=== PATIENT | male | born 1965 | race American Indian/Alaskan Native ===

== ENCOUNTER 2017-12-21 21:22 | Inpatient (IN) | payer MEDICAID ==
[~2017-12-21] VITALS: Ht 182.9 cm; Wt 136.7 kg
[~2017-12-21 21:22] MED LIST: AMIO200T27 PO; APIX5TAB3 PO; CARV25TA3 PO; CLIN-80 PO; CLIN50GE6 TP; FURO-149 PO; FURO40TA4 PO; INSU200I SQ; LANTUS SUBCUT; LISI-604 PO; POTA10TA19 PO
[2017-12-21 23:04] LABS: BASOPHILS % (AUTO) 0.5 % (0-1); EOSINOPHILS # (AUTO) 0.1 X10'3 (0-0.9); EOSINOPHILS % (AUTO) 2.2 % (0-6); HEMATOCRIT 39.1 % (42.0-52.0); HEMOGLOBIN 13.3 g/dl (14.0-17.9); LYMPHOCYTES # (AUTO) 1.1 X10'3 (1.1-4.8); LYMPHOCYTES % (AUTO) 22.1 % (21-51); MEAN CORPUSCULAR HEMOGLOBIN 29.6 PG (27.0-31.0); MEAN CORPUSCULAR VOLUME 87.2 FL (78-98); MEAN PLATELET VOLUME 8.2 FL (7.4-10.4); MONOCYTES # (AUTO) 0.4 X10'3 (0-0.9); MONOCYTES % (AUTO) 8.3 % (2-12); NEUTROPHILS # (AUTO) 3.4 X10'3 (1.8-7.7); NEUTROPHILS % (AUTO) 66.9 % (42-75); PLATELET COUNT 188 X10'3 (140-440); RED BLOOD COUNT 4.48 X10'6 (4.70-6.10); RED CELL DISTRIBUTION WIDTH 14.8 % (11.5-14.5); WHITE BLOOD COUNT 5.1 X10'3 (4.5-11.0)
[2017-12-21 23:07] LABS: INR 1.1 INR; PARTIAL THROMBOPLASTIN TIME 26 SECONDS (22-32); PROTHROMBIN TIME 10.9 SECONDS (9.0-12.0)
[2017-12-21 23:17] LABS: ALANINE AMINOTRANSFERASE 60 U/L (12-78); ALBUMIN 2.9 G/DL (3.4-5.0); ALBUMIN/GLOBULIN RATIO 0.8 (1.1-1.5); ALKALINE PHOSPHATASE 98 IU/L (46-116); ANION GAP 6 (8-16); ASPARTATE AMINO TRANSFERASE 23 U/L (10-37); BILIRUBIN,TOTAL 0.6 MG/DL (0.1-1.0); BLOOD UREA NITROGEN 29 MG/DL (7-18); BUN/CREATININE RATIO 20.7 (5.4-32.0); CALCIUM 8.2 MG/DL (8.5-10.1); CHLORIDE 105 MMOL/L (99-107); GLUCOSE 302 MG/DL (70-104); MAGNESIUM 1.5 MG/DL (1.5-2.4); POTASSIUM 3.7 MMOL/L (3.5-5.1); SODIUM 140 MMOL/L (135-145); TOTAL CARBON DIOXIDE 29.1 MMOL/L (24-32); TOTAL PROTEIN 6.4 G/DL (6.4-8.2); eGFR 53 ML/MIN
[2017-12-21] MEDS ORDERED: metoprolol tartrate 50mg tablet PO ONE (23:45)
[2017-12-21] MEDS ORDERED: diltiazem 5mg/ml 5ml inj. IV ONE (23:45)
[2017-12-22] MEDS ORDERED: enoxaparin 100mg/ml syringe SUBCUT ONE (00:50)
[2017-12-22] MEDS ORDERED: aspirin 81mg tab.chew PO ONE (00:50)
[2017-12-22] MEDS ORDERED: furosemide 10 MG/1 ML 10ml inj IV ONE ×2 (00:50→03:20)
[2017-12-22] MEDS ORDERED: magnesium 4gm in 100ml NS 100 ML IV PRN (01:00)
[2017-12-22] MEDS ORDERED: Neutra Phos packet PO PRN (01:00)
[2017-12-22] MEDS ORDERED: sodium phosphate inj. 15 MMOL in dextrose 5%-water 150 ML IV PRN (01:00)
[2017-12-22] MEDS ORDERED: potassium Cl 20 mEq SR tablet PO PRN ×2 (01:00)
[2017-12-22] MEDS ORDERED: sodium phosphate inj. 30 MMOL in dextrose 5%-water 250 ML IV PRN (01:00)
[2017-12-22] MEDS ORDERED: mag hydrox/Alum hydrox/simeth 30ml oral suspension PO PRN (01:00)
[2017-12-22] MEDS ORDERED: magnesium 2GM in 50ml NS 50 ML IV PRN (01:00)
[2017-12-22] MEDS ORDERED: magnesium hydroxide 30ml (MOM) UD suspension PO PRN (01:00)
[2017-12-22] MEDS ORDERED: ondansetron/PF 4mg/2ml inj IV PRN (01:00)
[2017-12-22] MEDS ORDERED: magnesium Cl slow-release 64mg tablet PO PRN (01:00)
[2017-12-22] MEDS ORDERED: diltiazem-D5W 125mg/125ml 125 ML IV ONE (01:07)
[2017-12-22] MEDS ORDERED: furosemide inj 100 ML IV SCH ×2 (01:09→07:00)
[2017-12-22] MEDS ORDERED: dextrose 50%-water 50ml dispensing syringe IV PRN ×2 (01:10)
[2017-12-22] MEDS ORDERED: MESSAGE TO PHARMACY PO ONE (01:10)
[2017-12-22] MEDS ORDERED: dextrose ORAL solution 15 GM/59 ML bottle PO PRN ×2 (01:10)
[2017-12-22] MEDS ORDERED: glucagon, human recombinant 1mg kit SUBCUT PRN (01:10)
[2017-12-22 01:45] LABS: D-DIMER 1.37 MG/L FEU (0-0.50)
[2017-12-22 01:50] LABS: ALBUMIN 2.7 G/DL (3.4-5.0); ANION GAP 6 (8-16); BLOOD UREA NITROGEN 28 MG/DL (7-18); CALCIUM 8.1 MG/DL (8.5-10.1); CHLORIDE 105 MMOL/L (99-107); GLUCOSE 356 MG/DL (70-104); POTASSIUM 3.5 MMOL/L (3.5-5.1); SODIUM 142 MMOL/L (135-145); TOTAL CARBON DIOXIDE 31.4 MMOL/L (24-32); eGFR 53 ML/MIN
[2017-12-22] MEDS ORDERED: carVEDilol 12.5mg tablet PO PRN ×2 (01:56→02:20)
[2017-12-22 08:16] LABS: ALBUMIN 2.8 G/DL (3.4-5.0); ANION GAP 5 (8-16); BLOOD UREA NITROGEN 28 MG/DL (7-18); BUN/CREATININE RATIO 18.7 (5.4-32.0); CALCIUM 8.3 MG/DL (8.5-10.1); CHLORIDE 105 MMOL/L (99-107); GLUCOSE 353 MG/DL (70-104); PHOSPHORUS 3.6 MG/DL (2.3-4.5); POTASSIUM 3.6 MMOL/L (3.5-5.1); SODIUM 141 MMOL/L (135-145); TOTAL CARBON DIOXIDE 30.6 MMOL/L (24-32); eGFR 49 ML/MIN
[2017-12-22] MEDS: lisinopril 5mg tablet PO SCH (08:48)
[2017-12-22] MEDS: amiodarone 200mg tablet PO SCH (08:48)
[2017-12-22] MEDS: apixaban 5mg tablet PO SCH ×2 (12:25→19:25)
[2017-12-22 13:45] LABS: ALBUMIN 2.8 G/DL (3.4-5.0); ANION GAP 7 (8-16); BLOOD UREA NITROGEN 27 MG/DL (7-18); BUN/CREATININE RATIO 19.3 (5.4-32.0); CALCIUM 8.2 MG/DL (8.5-10.1); CHLORIDE 103 MMOL/L (99-107); GLUCOSE 378 MG/DL (70-104); SODIUM 140 MMOL/L (135-145); TOTAL CARBON DIOXIDE 29.6 MMOL/L (24-32); eGFR 53 ML/MIN
[2017-12-22 13:46] LABS: PHOSPHORUS 3.6 MG/DL (2.3-4.5); POTASSIUM 3.9 MMOL/L (3.5-5.1)
[2017-12-22] MEDS: insulin Lispro (HumaLOG) vial - multi-dose SQ SCH ×3 (16:18→22:54)
[2017-12-22 17:06] VITALS: BP 115/72
[2017-12-22 18:30] VITALS: BP 118/82
[2017-12-22] MEDS: furosemide 20 MG/2 ML vial IV SCH (19:24)
[2017-12-22 20:30] VITALS: BP 111/66
[2017-12-22 22:18] LABS: ALBUMIN 2.7 G/DL (3.4-5.0); ANION GAP 7 (8-16); BLOOD UREA NITROGEN 32 MG/DL (7-18); BUN/CREATININE RATIO 22.9 (5.4-32.0); CALCIUM 8.2 MG/DL (8.5-10.1); CHLORIDE 104 MMOL/L (99-107); GLUCOSE 235 MG/DL (70-104); POTASSIUM 3.5 MMOL/L (3.5-5.1); SODIUM 139 MMOL/L (135-145); TOTAL CARBON DIOXIDE 27.7 MMOL/L (24-32); eGFR 53 ML/MIN
[2017-12-22] MEDS: insulin glargine (Lantus) pen - multi-dose SQ SCH (22:52)
[2017-12-22 23:00] VITALS: BP 101/56
[2017-12-23] VITALS (17 sets, daily range): BP systolic 94–117; BP diastolic 57–87
[2017-12-23] MEDS ORDERED: diltiazem-D5W 125mg/125ml 125 ML IV ONE (04:45)
[2017-12-23] MEDS: diltiazem-D5W 125mg/125ml 125 ML IV SCH (04:59)
[2017-12-23] MEDS: insulin Lispro (HumaLOG) vial - multi-dose SQ SCH ×3 (07:38→19:51)
[2017-12-23] MEDS: amiodarone 200mg tablet PO SCH (07:41)
[2017-12-23] MEDS: lisinopril 5mg tablet PO SCH (07:41)
[2017-12-23] MEDS: apixaban 5mg tablet PO SCH ×2 (07:41→19:52)
[2017-12-23] MEDS: furosemide 20 MG/2 ML vial IV SCH (07:41)
[2017-12-23 09:24] LABS: ALANINE AMINOTRANSFERASE 45 U/L (12-78); ALBUMIN 2.6 G/DL (3.4-5.0); ALBUMIN/GLOBULIN RATIO 0.8 (1.1-1.5); ALKALINE PHOSPHATASE 85 IU/L (46-116); ANION GAP 9 (8-16); ASPARTATE AMINO TRANSFERASE 23 U/L (10-37); BLOOD UREA NITROGEN 27 MG/DL (7-18); BUN/CREATININE RATIO 22.5 (5.4-32.0); CALCIUM 8.3 MG/DL (8.5-10.1); CHLORIDE 105 MMOL/L (99-107); GLUCOSE 236 MG/DL (70-104); MAGNESIUM 1.5 MG/DL (1.5-2.4); PHOSPHORUS 3.9 MG/DL (2.3-4.5); POTASSIUM 3.5 MMOL/L (3.5-5.1); SODIUM 142 MMOL/L (135-145); TOTAL CARBON DIOXIDE 28.4 MMOL/L (24-32); eGFR 63 ML/MIN
[2017-12-23] MEDS: HYDROcodone/acetaminophen 5mg/325mg tablet PO PRN (13:16)
[2017-12-23] MEDS: furosemide 40mg/4ml inj IV SCH ×2 (14:22→19:52)
[2017-12-23] MEDS: insulin glargine (Lantus) pen - multi-dose SQ SCH (21:09)
[2017-12-24] VITALS (21 sets, daily range): BP systolic 91–133; BP diastolic 49–104
[2017-12-24 06:42] LABS: ALANINE AMINOTRANSFERASE 39 U/L (12-78); ALBUMIN 2.7 G/DL (3.4-5.0); ALBUMIN/GLOBULIN RATIO 0.8 (1.1-1.5); ALKALINE PHOSPHATASE 86 IU/L (46-116); ANION GAP 10 (8-16); ASPARTATE AMINO TRANSFERASE 20 U/L (10-37); BILIRUBIN,TOTAL 1.5 MG/DL (0.1-1.0); BLOOD UREA NITROGEN 22 MG/DL (7-18); BUN/CREATININE RATIO 18.3 (5.4-32.0); CALCIUM 8.6 MG/DL (8.5-10.1); CHLORIDE 104 MMOL/L (99-107); GLUCOSE 147 MG/DL (70-104); MAGNESIUM 1.5 MG/DL (1.5-2.4); PHOSPHORUS 3.9 MG/DL (2.3-4.5); POTASSIUM 3.7 MMOL/L (3.5-5.1); SODIUM 141 MMOL/L (135-145); TOTAL CARBON DIOXIDE 27.1 MMOL/L (24-32); TOTAL PROTEIN 6.2 G/DL (6.4-8.2); eGFR 63 ML/MIN
[2017-12-24] MEDS: apixaban 5mg tablet PO SCH ×2 (08:14→19:54)
[2017-12-24] MEDS: lisinopril 5mg tablet PO SCH (08:15)
[2017-12-24] MEDS: amiodarone 200mg tablet PO SCH (08:15)
[2017-12-24] MEDS: furosemide 40mg/4ml inj IV SCH ×2 (08:17→19:54)
[2017-12-24] MEDS: insulin Lispro (HumaLOG) vial - multi-dose SQ SCH ×4 (08:22→21:11)
[2017-12-24] MEDS: diltiazem-D5W 125mg/125ml 125 ML IV SCH (09:04)
[2017-12-24] MEDS: guaiFENesin/DM oral syrup 5 ML CUP PO PRN ×2 (13:33→21:14)
[2017-12-24] MEDS: HYDROcodone/acetaminophen 5mg/325mg tablet PO PRN (13:34)
[2017-12-24] MEDS ORDERED: amiodarone 150mg/dext, iso-os 100 ML IV ONE (14:40)
[2017-12-24] MEDS: amiodarone/D5 360MG/200ML BAG 200 ML IV SCH ×2 (15:06→21:02)
[2017-12-24] MEDS: benzocaine/menthol oral lozeng 1 EACH BOX MM PRN ×2 (17:56→20:00)
[2017-12-24] MEDS ORDERED: diltiazem SR 60mg capsule (twice daily) PO SCH (19:25)
[2017-12-24] MEDS ORDERED: diltiazem CD 120mg capsule (once-daily) PO ONE (19:35)
[2017-12-24] MEDS: insulin glargine (Lantus) pen - multi-dose SQ SCH (21:10)
[2017-12-25] VITALS (23 sets, daily range): BP systolic 93–121; BP diastolic 59–85
[2017-12-25 06:34] LABS: ALANINE AMINOTRANSFERASE 29 U/L (12-78); ALBUMIN 2.6 G/DL (3.4-5.0); ALBUMIN/GLOBULIN RATIO 0.7 (1.1-1.5); ALKALINE PHOSPHATASE 76 IU/L (46-116); ANION GAP 9 (8-16); ASPARTATE AMINO TRANSFERASE 20 U/L (10-37); BILIRUBIN,TOTAL 0.9 MG/DL (0.1-1.0); BLOOD UREA NITROGEN 25 MG/DL (7-18); BUN/CREATININE RATIO 17.9 (5.4-32.0); CALCIUM 8.1 MG/DL (8.5-10.1); CHLORIDE 101 MMOL/L (99-107); GLUCOSE 224 MG/DL (70-104); MAGNESIUM 1.7 MG/DL (1.5-2.4); PHOSPHORUS 3.5 MG/DL (2.3-4.5); POTASSIUM 3.6 MMOL/L (3.5-5.1); SODIUM 138 MMOL/L (135-145); TOTAL CARBON DIOXIDE 27.6 MMOL/L (24-32); TOTAL PROTEIN 6.1 G/DL (6.4-8.2); eGFR 53 ML/MIN
[2017-12-25] MEDS ORDERED: MIDAZolam 5mg/ml 2ml vial IV ONE (07:05)
[2017-12-25] MEDS ORDERED: fentaNYL/PF 50MCG/1 ML 2ML syringe IV ONE (07:05)
[2017-12-25] MEDS: guaiFENesin/DM oral syrup 5 ML CUP PO PRN (08:04)
[2017-12-25] MEDS: lisinopril 5mg tablet PO SCH (08:05)
[2017-12-25] MEDS: diltiazem CD 120mg capsule (once-daily) PO SCH (08:05)
[2017-12-25] MEDS: apixaban 5mg tablet PO SCH ×2 (08:05→19:16)
[2017-12-25] MEDS: HYDROcodone/acetaminophen 5mg/325mg tablet PO PRN ×2 (08:05→19:32)
[2017-12-25] MEDS ORDERED: MIDAZolam 1mg/ml 10ml vial IV ONE (08:55)
[2017-12-25] MEDS: amiodarone/D5 360MG/200ML BAG 200 ML IV SCH (08:58)
[2017-12-25] MEDS: furosemide 40mg/4ml inj IV SCH ×2 (11:00→19:17)
[2017-12-25] MEDS: benzocaine/menthol oral lozeng 1 EACH BOX MM PRN (13:36)
[2017-12-25] MEDS: insulin Lispro (HumaLOG) vial - multi-dose SQ SCH ×2 (13:37→19:20)
[2017-12-25] MEDS: acetaminophen 325mg tablet PO PRN ×2 (15:33→23:36)
[2017-12-25] MEDS: insulin glargine (Lantus) pen - multi-dose SQ SCH (21:47)
[2017-12-26] VITALS (11 sets, daily range): BP systolic 93–122; BP diastolic 57–86
[2017-12-26] MEDS: amiodarone/D5 360MG/200ML BAG 200 ML IV SCH ×2 (01:39→14:43)
[2017-12-26] MEDS: lisinopril 5mg tablet PO SCH (07:49)
[2017-12-26] MEDS: apixaban 5mg tablet PO SCH ×2 (07:49→19:08)
[2017-12-26] MEDS: furosemide 40mg/4ml inj IV SCH ×2 (07:50→19:08)
[2017-12-26] MEDS: diltiazem CD 120mg capsule (once-daily) PO SCH (07:50)
[2017-12-26] MEDS: insulin Lispro (HumaLOG) vial - multi-dose SQ SCH ×3 (07:54→19:10)
[2017-12-26 08:13] LABS: ALANINE AMINOTRANSFERASE 34 U/L (12-78); ALBUMIN 2.8 G/DL (3.4-5.0); ALBUMIN/GLOBULIN RATIO 0.7 (1.1-1.5); ALKALINE PHOSPHATASE 75 IU/L (46-116); ANION GAP 10 (8-16); ASPARTATE AMINO TRANSFERASE 27 U/L (10-37); BLOOD UREA NITROGEN 30 MG/DL (7-18); BUN/CREATININE RATIO 18.8 (5.4-32.0); CALCIUM 8.1 MG/DL (8.5-10.1); CHLORIDE 99 MMOL/L (99-107); GLUCOSE 126 MG/DL (70-104); SODIUM 138 MMOL/L (135-145); TOTAL PROTEIN 6.7 G/DL (6.4-8.2); eGFR 45 ML/MIN
[2017-12-26 08:24] LABS: BASOPHILS % (AUTO) 0.5 % (0-1); EOSINOPHILS % (AUTO) 0.1 % (0-6); HEMATOCRIT 39.6 % (42.0-52.0); HEMOGLOBIN 13.4 g/dl (14.0-17.9); LYMPHOCYTES # (AUTO) 0.8 X10'3 (1.1-4.8); LYMPHOCYTES % (AUTO) 11.3 % (21-51); MEAN CORPUSCULAR HEMOGLOBIN 29.3 PG (27.0-31.0); MEAN CORPUSCULAR VOLUME 86.2 FL (78-98); MEAN PLATELET VOLUME 8.5 FL (7.4-10.4); MONOCYTES # (AUTO) 0.4 X10'3 (0-0.9); MONOCYTES % (AUTO) 6.4 % (2-12); NEUTROPHILS # (AUTO) 5.4 X10'3 (1.8-7.7); NEUTROPHILS % (AUTO) 81.7 % (42-75); PLATELET COUNT 160 X10'3 (140-440); RED BLOOD COUNT 4.59 X10'6 (4.70-6.10); RED CELL DISTRIBUTION WIDTH 15.2 % (11.5-14.5); WHITE BLOOD COUNT 6.6 X10'3 (4.5-11.0)
[2017-12-26] MEDS: acetaminophen 325mg tablet PO PRN (09:51)
[2017-12-26] MEDS: HYDROcodone/acetaminophen 5mg/325mg tablet PO PRN ×2 (14:40→19:35)
[2017-12-26] MEDS: insulin glargine (Lantus) pen - multi-dose SQ SCH (21:25)
[2017-12-27] VITALS (10 sets, daily range): BP systolic 97–121; BP diastolic 56–82
[2017-12-27] MEDS: amiodarone/D5 360MG/200ML BAG 200 ML IV SCH (00:40)
[2017-12-27 07:14] LABS: BASOPHILS % (AUTO) 0.4 % (0-1); EOSINOPHILS # (AUTO) 0.1 X10'3 (0-0.9); EOSINOPHILS % (AUTO) 1.4 % (0-6); HEMATOCRIT 37.8 % (42.0-52.0); HEMOGLOBIN 12.8 g/dl (14.0-17.9); LYMPHOCYTES # (AUTO) 0.6 X10'3 (1.1-4.8); LYMPHOCYTES % (AUTO) 11.3 % (21-51); MEAN CORPUSCULAR HEMOGLOBIN 29.4 PG (27.0-31.0); MEAN CORPUSCULAR HGB CONC 33.8 % (33.0-36.5); MEAN PLATELET VOLUME 8.2 FL (7.4-10.4); MONOCYTES # (AUTO) 0.4 X10'3 (0-0.9); MONOCYTES % (AUTO) 7.5 % (2-12); NEUTROPHILS # (AUTO) 4.5 X10'3 (1.8-7.7); NEUTROPHILS % (AUTO) 79.4 % (42-75); PLATELET COUNT 145 X10'3 (140-440); RED BLOOD COUNT 4.35 X10'6 (4.70-6.10); RED CELL DISTRIBUTION WIDTH 15.1 % (11.5-14.5); WHITE BLOOD COUNT 5.7 X10'3 (4.5-11.0)
[2017-12-27 08:00] LABS: ALANINE AMINOTRANSFERASE 29 U/L (12-78); ALBUMIN 2.5 G/DL (3.4-5.0); ALBUMIN/GLOBULIN RATIO 0.6 (1.1-1.5); ALKALINE PHOSPHATASE 63 IU/L (46-116); ANION GAP 11 (8-16); ASPARTATE AMINO TRANSFERASE 29 U/L (10-37); BILIRUBIN,TOTAL 0.9 MG/DL (0.1-1.0); BLOOD UREA NITROGEN 31 MG/DL (7-18); BUN/CREATININE RATIO 22.1 (5.4-32.0); CHLORIDE 100 MMOL/L (99-107); GLUCOSE 137 MG/DL (70-104); SODIUM 137 MMOL/L (135-145); TOTAL CARBON DIOXIDE 26.5 MMOL/L (24-32); TOTAL PROTEIN 6.4 G/DL (6.4-8.2); eGFR 53 ML/MIN
[2017-12-27 08:02] LABS: POTASSIUM 4.1 MMOL/L (3.5-5.1)
[2017-12-27] MEDS: diltiazem CD 120mg capsule (once-daily) PO SCH (08:15)
[2017-12-27] MEDS: lisinopril 5mg tablet PO SCH (08:15)
[2017-12-27] MEDS: apixaban 5mg tablet PO SCH ×2 (08:15→20:09)
[2017-12-27] MEDS: furosemide 40mg/4ml inj IV SCH ×2 (08:15→20:09)
[2017-12-27] MEDS: amiodarone 200mg tablet PO SCH (12:03)
[2017-12-27] MEDS: insulin Lispro (HumaLOG) vial - multi-dose SQ SCH ×2 (12:57→18:50)
[2017-12-27] MEDS: HYDROcodone/acetaminophen 5mg/325mg tablet PO PRN ×2 (13:00→22:26)
[2017-12-27] MEDS: insulin glargine (Lantus) pen - multi-dose SQ SCH (21:30)
[2017-12-28] VITALS (7 sets, daily range): BP systolic 93–106; BP diastolic 58–72
[2017-12-28] MEDS: HYDROcodone/acetaminophen 5mg/325mg tablet PO PRN ×2 (02:26→07:17)
[2017-12-28] MEDS: diltiazem CD 120mg capsule (once-daily) PO SCH (07:16)
[2017-12-28] MEDS: lisinopril 5mg tablet PO SCH (07:17)
[2017-12-28] MEDS: furosemide 40mg/4ml inj IV SCH ×2 (07:19→20:22)
[2017-12-28] MEDS: amiodarone 200mg tablet PO SCH (07:19)
[2017-12-28] MEDS: apixaban 5mg tablet PO SCH ×2 (08:04→20:22)
[2017-12-28] MEDS: insulin Lispro (HumaLOG) vial - multi-dose SQ SCH ×3 (08:07→17:50)
[2017-12-28] MEDS: acetaminophen 325mg tablet PO PRN (17:18)
[2017-12-28] MEDS: insulin glargine (Lantus) pen - multi-dose SQ SCH (21:44)
[2017-12-29] VITALS (7 sets, daily range): BP systolic 85–117; BP diastolic 55–79
[2017-12-29] MEDS: amiodarone 200mg tablet PO SCH (05:19)
[2017-12-29] MEDS: furosemide 40mg/4ml inj IV SCH ×2 (07:29→19:13)
[2017-12-29] MEDS: lisinopril 5mg tablet PO SCH (07:29)
[2017-12-29] MEDS: diltiazem CD 120mg capsule (once-daily) PO SCH (07:29)
[2017-12-29] MEDS: apixaban 5mg tablet PO SCH ×2 (07:30→19:13)
[2017-12-29 07:42] LABS: BASOPHILS % (AUTO) 0.4 % (0-1); EOSINOPHILS # (AUTO) 0.1 X10'3 (0-0.9); EOSINOPHILS % (AUTO) 2.4 % (0-6); HEMATOCRIT 37.8 % (42.0-52.0); HEMOGLOBIN 12.8 g/dl (14.0-17.9); LYMPHOCYTES % (AUTO) 21.9 % (21-51); MEAN CORPUSCULAR HEMOGLOBIN 29.1 PG (27.0-31.0); MEAN CORPUSCULAR HGB CONC 33.8 % (33.0-36.5); MEAN CORPUSCULAR VOLUME 86.3 FL (78-98); MEAN PLATELET VOLUME 8.4 FL (7.4-10.4); MONOCYTES # (AUTO) 0.4 X10'3 (0-0.9); MONOCYTES % (AUTO) 8.5 % (2-12); NEUTROPHILS # (AUTO) 2.9 X10'3 (1.8-7.7); NEUTROPHILS % (AUTO) 66.8 % (42-75); PLATELET COUNT 148 X10'3 (140-440); RED BLOOD COUNT 4.38 X10'6 (4.70-6.10); RED CELL DISTRIBUTION WIDTH 15.3 % (11.5-14.5); WHITE BLOOD COUNT 4.4 X10'3 (4.5-11.0)
[2017-12-29 07:56] LABS: ALBUMIN 2.5 G/DL (3.4-5.0); ANION GAP 6 (8-16); BLOOD UREA NITROGEN 31 MG/DL (7-18); BUN/CREATININE RATIO 22.1 (5.4-32.0); CALCIUM 8.1 MG/DL (8.5-10.1); CHLORIDE 104 MMOL/L (99-107); GLUCOSE 145 MG/DL (70-104); POTASSIUM 4.1 MMOL/L (3.5-5.1); SODIUM 139 MMOL/L (135-145); TOTAL CARBON DIOXIDE 28.7 MMOL/L (24-32); eGFR 53 ML/MIN
[2017-12-29] MEDS: insulin Lispro (HumaLOG) vial - multi-dose SQ SCH ×3 (09:55→19:12)
[2017-12-29] MEDS: HYDROcodone/acetaminophen 5mg/325mg tablet PO PRN (14:24)
[2017-12-29] MEDS: insulin glargine (Lantus) pen - multi-dose SQ SCH (21:00)
[2017-12-30 03:00] VITALS: BP 108/70
[2017-12-30 06:35] VITALS: BP 120/77
[2017-12-30] MEDS: HYDROcodone/acetaminophen 5mg/325mg tablet PO PRN ×3 (07:26→21:56)
[2017-12-30] MEDS: apixaban 5mg tablet PO SCH ×2 (07:49→21:56)
[2017-12-30] MEDS: diltiazem CD 180mg cap (once-daily) PO SCH (07:50)
[2017-12-30] MEDS: lisinopril 5mg tablet PO SCH (07:50)
[2017-12-30] MEDS: furosemide 40mg/4ml inj IV SCH ×2 (07:51→20:32)
[2017-12-30] MEDS ORDERED: amiodarone 200mg tablet PO SCH (08:00)
[2017-12-30 11:00] VITALS: BP 101/70
[2017-12-30 15:00] VITALS: BP 99/74
[2017-12-30 19:00] VITALS: BP 105/83
[2017-12-30] MEDS: carVEDilol 3.125mg tablet PO SCH (20:32)
[2017-12-30] MEDS: insulin glargine (Lantus) pen - multi-dose SQ SCH (20:48)
[2017-12-30 23:00] VITALS: BP 108/81
[2017-12-31] VITALS (7 sets, daily range): BP systolic 93–106; BP diastolic 56–71
[2017-12-31] MEDS: HYDROcodone/acetaminophen 5mg/325mg tablet PO PRN ×2 (03:58→23:27)
[2017-12-31] MEDS: diltiazem CD 180mg cap (once-daily) PO SCH (08:00)
[2017-12-31] MEDS: lisinopril 5mg tablet PO SCH (08:00)
[2017-12-31] MEDS: carVEDilol 3.125mg tablet PO SCH ×2 (08:00→20:15)
[2017-12-31] MEDS: furosemide 40mg/4ml inj IV SCH ×2 (08:00→20:15)
[2017-12-31] MEDS: apixaban 5mg tablet PO SCH ×2 (08:06→20:14)
[2017-12-31] MEDS: insulin Lispro (HumaLOG) vial - multi-dose SQ SCH ×3 (09:08→19:06)
[2017-12-31] MEDS: insulin glargine (Lantus) pen - multi-dose SQ SCH (22:43)
[2018-01-01 02:00] VITALS: BP 142/58
[2018-01-01] MEDS ORDERED: HYDROcodone/acetaminophen 5mg/325mg tablet PO ONE (02:45)
[2018-01-01] MEDS: clindamycin 150mg capsule PO SCH ×3 (03:25→14:26)
[2018-01-01 06:00] VITALS: BP 116/72
[2018-01-01] MEDS ORDERED: lactobacillus rhamnosus 10,000 MMU CELLS/CAPSULE PO SCH (07:30)
[2018-01-01] MEDS: lisinopril 5mg tablet PO SCH (07:37)
[2018-01-01] MEDS: diltiazem CD 180mg cap (once-daily) PO SCH (07:46)
[2018-01-01] MEDS: carVEDilol 3.125mg tablet PO SCH (07:46)
[2018-01-01 08:19] LABS: BASOPHILS % (AUTO) 0.1 % (0-1); EOSINOPHILS # (AUTO) 0.2 X10'3 (0-0.9); EOSINOPHILS % (AUTO) 2.2 % (0-6); HEMATOCRIT 38.4 % (42.0-52.0); HEMOGLOBIN 13.1 g/dl (14.0-17.9); LYMPHOCYTES # (AUTO) 1.2 X10'3 (1.1-4.8); LYMPHOCYTES % (AUTO) 15.4 % (21-51); MEAN CORPUSCULAR HEMOGLOBIN 29.2 PG (27.0-31.0); MEAN CORPUSCULAR HGB CONC 34.1 % (33.0-36.5); MEAN CORPUSCULAR VOLUME 85.5 FL (78-98); MEAN PLATELET VOLUME 8.2 FL (7.4-10.4); MONOCYTES # (AUTO) 0.6 X10'3 (0-0.9); MONOCYTES % (AUTO) 7.9 % (2-12); NEUTROPHILS # (AUTO) 5.6 X10'3 (1.8-7.7); NEUTROPHILS % (AUTO) 74.4 % (42-75); PLATELET COUNT 227 X10'3 (140-440); RED CELL DISTRIBUTION WIDTH 14.9 % (11.5-14.5); WHITE BLOOD COUNT 7.5 X10'3 (4.5-11.0)
[2018-01-01 08:31] LABS: ALBUMIN 2.6 G/DL (3.4-5.0); ANION GAP 9 (8-16); BLOOD UREA NITROGEN 27 MG/DL (7-18); BUN/CREATININE RATIO 20.5 (5.4-32.0); CALCIUM 8.5 MG/DL (8.5-10.1); CHLORIDE 106 MMOL/L (99-107); CREATININE 1.32 MG/DL (0.60-1.10); GLUCOSE 132 MG/DL (70-104); POTASSIUM 4.4 MMOL/L (3.5-5.1); SODIUM 141 MMOL/L (135-145); eGFR 57 ML/MIN
[2018-01-01] MEDS: insulin Lispro (HumaLOG) vial - multi-dose SQ SCH (10:15)
[2018-01-01 11:00] VITALS: BP 118/84
[2018-01-01] MEDS: furosemide 40mg/4ml inj IV SCH (11:08)
[2018-01-01] MEDS: apixaban 5mg tablet PO SCH (11:08)
[2018-01-01 15:00] VITALS: BP 101/71
[2018-01-01] MEDS ORDERED: COR3.125T PO (15:16)
== END 2018-01-01 18:06 | disposition home or self-care (01) | DRG 133 ==
LOC: ER 21:22 → ED HOLD 12-22 01:00 → EDBEDREQ 12-22 15:14 → PCU 3S 12-22 17:30 → UNDODISIN 12-30 13:08
PROVIDERS: ADMIT Family Medicine; ATTEND Family Medicine
PROC: 5A09357 Assistance with Respiratory Ventilation, Less than 24 Consecutive Hours, Continuous Positive Airway Pressure (ICD-10-PCS; principal; 2017-12-22)
PROC: 5A2204Z Restoration of Cardiac Rhythm, Single (ICD-10-PCS; 2017-12-25)
DX: J96.01 Acute respiratory failure with hypoxia (principal); I50.23 Acute on chronic systolic (congestive) heart failure; E11.65 Type 2 diabetes mellitus with hyperglycemia; E11.22 Type 2 diabetes mellitus with diabetic chronic kidney disease; I13.0 Hypertensive heart and chronic kidney disease with heart failure and stage 1 through stage 4 chronic kidney disease, or unspecified chronic kidney disease; Z68.41 Body mass index [BMI] 40.0-44.9, adult; E66.01 Morbid (severe) obesity due to excess calories; N18.9 Chronic kidney disease, unspecified; I25.10 Atherosclerotic heart disease of native coronary artery without angina pectoris; I48.91 Unspecified atrial fibrillation; D64.9 Anemia, unspecified; E78.00 Pure hypercholesterolemia, unspecified; F17.210 Nicotine dependence, cigarettes, uncomplicated; G47.33 Obstructive sleep apnea (adult) (pediatric); Z79.899 Other long term (current) drug therapy; Z79.4 Long term (current) use of insulin
CPT/HCPCS: 36415; 71045; 80048; 80053; 80069; 83036; 83735; 83874; 83880; 84100; 84484; 85025; 85379; 85610; 85730; 87070; 93005; 93306; 93970; 94660; 94760; 96374; 99291; J0282; J1650; J1815; J1940; J2250; J3010; J3490; J7030

== ENCOUNTER 2018-05-28 19:08 | Emergency (ER) | payer MEDICAID ==
[~2018-05-28] VITALS: Ht 182.9 cm; Wt 120.0 kg
[~2018-05-28 19:08] MED LIST changes: -CARV25TA3 PO; -CLIN-80 PO; -CLIN50GE6 TP; +COR3.125T PO; -FURO-149 PO
[2018-05-28 22:59] VITALS: BP 135/80
[2018-05-28] MEDS ORDERED: INSU100V11 SQ (23:02)
== END 2018-05-28 23:13 | disposition home or self-care (01) ==
LOC: ER 19:08
DX: E11.9 Type 2 diabetes mellitus without complications (principal); I48.91 Unspecified atrial fibrillation; I50.9 Heart failure, unspecified; E78.00 Pure hypercholesterolemia, unspecified; I11.0 Hypertensive heart disease with heart failure; Z98.890 Other specified postprocedural states; Z56.0 Unemployment, unspecified; Z79.4 Long term (current) use of insulin; Z79.899 Other long term (current) drug therapy
CPT/HCPCS: 99283

== ENCOUNTER 2019-02-02 20:58 | Inpatient (IN) | payer MEDICAID | END 2019-02-05 10:56 | disposition home or self-care (01) | LOC: ED HOLD 23:18 → ER 20:58 → PCU 3S 02-03 07:40 ==